=== PATIENT | female | born 1965 | race Two or more races ===

== ENCOUNTER 2025-04-26 10:05 | Inpatient (IN) | payer OTHER ==
[~2025-04-26] VITALS: Ht 213.4 cm; Wt 97.5 kg
[2025-04-26] MEDS ORDERED: NEURONTIN600 M1 PO (10:49)
[2025-04-26] MEDS ORDERED: CRESTOR40 MG (10:49)
[2025-04-26] MEDS ORDERED: VALSARTAN-HCTZ1 EAC1 PO (10:50)
[2025-04-26 10:51] VITALS: BP 139/82
[2025-05-09] MEDS ORDERED: levoFLOXacin IN DEXTROSE 5 % 5 MG/ML PIGGYBAG IV ONE (08:15)
[2025-05-09] MEDS ORDERED: LIDOCAINE HCL 1%/EPINEPHRINE 20ML VIAL IJ ONE (08:15)
[2025-05-09] MEDS ORDERED: METRONIDAZOLE/SODIUM CHLORIDE 500 MG/100 ML PIGGYBACK IV ONE (08:15)
[2025-05-09] MEDS ORDERED: BUPIVACAINE HCL 30 ML VIAL IV ONE (08:15)
[2025-05-09] MEDS ORDERED: MORPHINE SULFATE 4 MG/ML CARTRIDGE IV PRN (10:00)
[2025-05-09] MEDS ORDERED: OxyCODONE HCL 5 MG TABLET (ROXICODONE) PO PRN (10:00)
[2025-05-09] MEDS ORDERED: DEXTROSE 50 % IN WATER 0.5 G/ML DISP.SYRIN IV PRN (10:00)
[2025-05-09] MEDS ORDERED: 0.9 % SODIUM CHLORIDE 1,000 ML IV SCH (10:00)
[2025-05-09] MEDS ORDERED: ONDANSETRON HCL 2 MG/ML VIAL IV PRN (10:00)
[2025-05-09 11:50] VITALS: BP 139/82; O2SAT 96
[2025-05-09 12:09] LABS: BASO % 0.3 % (0.1-1.2); EOS # 0.05 (0.04-0.54); EOS % 0.4 % (0.7-7.0); LYMPH # 1.12 (1.18-3.74); LYMPH % 9.3 % (19.3-53.1); MEAN PLATELET VOLUME 10.00 fl (9.4-12.4); MONO # 0.61 (0.24-0.82); MONO % 5.1 % (4.7-12.5); NEUT # 10.15 (1.56-6.13); NEUT % 84.6 % (34.0-71.1); RED CELL DISTRIBUTION WIDTH 13.8 % (11.6-14.4)
[2025-05-09 12:49] LABS: BUN CREA RATIO 16.0 (7.0-25.0); CREATININE SERUM 0.8 mg/dL (0.55-1.02); GFR 73.16; GLUCOSE FASTING 149.0 mg/dL (65-100); OSMOLALITY SERUM 290.0 MOSM/KG (275-295)
[2025-05-09] MEDS ORDERED: HYOSCYAMINE SULFATE 0.125 MG TAB.SUBL SL SCH (13:00)
[2025-05-09] MEDS ORDERED: ENALAPRILAT DIHYDRATE 1.25 MG/ML VIAL IV PRN (13:30)
[2025-05-09] MEDS ORDERED: ACETAMINOPHEN 500 MG GEL..CAP PO SCH (14:00)
[2025-05-09 16:00] VITALS: BP 145/76; O2SAT 97
[2025-05-09] MEDS ORDERED: GABAPENTIN 300 MG CAPSULE PO SCH (17:00)
[2025-05-09] MEDS ORDERED: METRONIDAZOLE/SODIUM CHLORIDE 500 MG/100 ML PIGGYBACK IV SCH (17:00)
[2025-05-09] MEDS ORDERED: FAMOTIDINE/PF 20 MG/2 ML VIAL IV PUSH SCH (21:00)
[2025-05-10] VITALS: BP 93/57; O2SAT 97
[2025-05-10 07:29] LABS: BASO % 0.3 % (0.1-1.2); EOS # 0.00 (0.04-0.54); EOS % 0.0 % (0.7-7.0); LYMPH # 1.20 (1.18-3.74); LYMPH % 15.9 % (19.3-53.1); MEAN PLATELET VOLUME 10.20 fl (9.4-12.4); MONO # 0.70 (0.24-0.82); MONO % 9.3 % (4.7-12.5); NEUT # 5.61 (1.56-6.13); NEUT % 74.2 % (34.0-71.1); RED CELL DISTRIBUTION WIDTH 13.6 % (11.6-14.4)
[2025-05-10 07:52] LABS: BUN CREA RATIO 16.0 (7.0-25.0); CREATININE SERUM 0.76 mg/dL (0.55-1.02); GFR 77.63; GLUCOSE FASTING 95.0 mg/dL (65-100); OSMOLALITY SERUM 286.0 MOSM/KG (275-295)
[2025-05-10 08:35] VITALS: BP 104/64; O2SAT 98
[2025-05-10] MEDS ORDERED: PATIENTS OWN MEDICATION (MEDICAMENTO EN PISO) PO SCH (09:00)
[2025-05-10] MEDS ORDERED: SOD FERRIC GLUC COMPLX/SUCROSE 62.5 MG in 0.9 % SODIUM CHLORIDE 50 ML IV SCH (12:00)
[2025-05-10] MEDS ORDERED: Cyanocobalamin/Mecobalamin 1 TAB.SL SL NR (13:00)
[2025-05-10 16:59] VITALS: BP 95/50; O2SAT 98
[2025-05-10] MEDS ORDERED: ROSUVASTATIN CALCIUM 20 MG TABLET PO SCH (17:00)
[2025-05-10] MEDS ORDERED: ENOXAPARIN SODIUM 40 MG/0.4 ML SYRINGE SUBCUTANEO SCH (17:00)
[2025-05-11 02:28] VITALS: BP 102/58; O2SAT 98
[2025-05-11 06:58] LABS: BASO % 1.0 % (0.1-1.2); EOS # 0.18 (0.04-0.54); EOS % 2.7 % (0.7-7.0); LYMPH # 1.54 (1.18-3.74); LYMPH % 22.7 % (19.3-53.1); MEAN PLATELET VOLUME 10.30 fl (9.4-12.4); MONO # 0.69 (0.24-0.82); MONO % 10.2 % (4.7-12.5); NEUT # 4.27 (1.56-6.13); NEUT % 63.1 % (34.0-71.1); RED CELL DISTRIBUTION WIDTH 13.5 % (11.6-14.4)
[2025-05-11 07:42] LABS: BUN CREA RATIO 15.0 (7.0-25.0); CREATININE SERUM 0.78 mg/dL (0.55-1.02); GFR 75.33; GLUCOSE FASTING 75.0 mg/dL (65-100); OSMOLALITY SERUM 285.0 MOSM/KG (275-295)
[2025-05-11] MEDS ORDERED: Cyanocobalamin/Mecobalamin 1 TAB.SL SL SCH (09:00)
[2025-05-11] MEDS ORDERED: ENOXAPARIN SODIUM 40 MG/0.4 ML SYRINGE SUBCUTANEO SCH (09:00)
[2025-05-11] MEDS ORDERED: POTASSIUM PHOS,M-BASIC-D-BASIC 3 MM/ML VIAL IV ONE (13:00)
[2025-05-11 16:00] VITALS: BP 115/71; O2SAT 95
[2025-05-12 00:55] VITALS: BP 128/73; O2SAT 98
[2025-05-12 07:30] VITALS: BP 136/76; O2SAT 99
[2025-05-12 11:42] LABS: BASO % 0.5 % (0.1-1.2); EOS # 0.35 (0.04-0.54); EOS % 6.0 % (0.7-7.0); LYMPH # 0.85 (1.18-3.74); LYMPH % 14.7 % (19.3-53.1); MEAN PLATELET VOLUME 9.80 fl (9.4-12.4); MONO # 0.56 (0.24-0.82); MONO % 9.7 % (4.7-12.5); NEUT # 3.98 (1.56-6.13); NEUT % 68.8 % (34.0-71.1); RED CELL DISTRIBUTION WIDTH 13.1 % (11.6-14.4)
[2025-05-12 18:00] VITALS: BP 133/83; O2SAT 98
[2025-05-13 01:31] VITALS: BP 111/76; O2SAT 98
[2025-05-13] MEDS ORDERED: TRAM1TAB98 PO (08:03)
[2025-05-13] MEDS ORDERED: PEPCID AC20 MG PO (08:03)
[2025-05-13] MEDS ORDERED: INTEGRA F CAPS1 EACH PO (08:03)
[2025-05-13] MEDS ORDERED: HYOSCYAMINE0.125 M1 SL (08:03)
[2025-05-13 08:37] VITALS: BP 127/80; O2SAT 99
== END 2025-05-13 12:04 | disposition home or self-care (01) | DRG 331 ==
LOC: SURG 05-09 07:00 → O/R 05-09 07:00 → SURG 05-09 12:00 → SURH 05-09 12:15 → SURG 05-13 12:04
PROVIDERS: Internal Medicine Geriatric Medicine; Obstetrics & Gynecology Gynecology; ADMIT Surgery; ATTEND Surgery
PROC: 07BC4ZX Excision of Pelvis Lymphatic, Percutaneous Endoscopic Approach, Diagnostic (ICD-10-PCS; 2025-05-09)
PROC: 0UB64ZZ Excision of Left Fallopian Tube, Percutaneous Endoscopic Approach (ICD-10-PCS; 2025-05-09)
PROC: 0UT14ZZ Resection of Left Ovary, Percutaneous Endoscopic Approach (ICD-10-PCS; 2025-05-09)
PROC: 0DTN4ZZ Resection of Sigmoid Colon, Percutaneous Endoscopic Approach (ICD-10-PCS; principal; 2025-05-09 18:30)
PROC: 0DBP4ZZ Excision of Rectum, Percutaneous Endoscopic Approach (ICD-10-PCS; 2025-05-09 18:30)
DX: C18.7 Malignant neoplasm of sigmoid colon (principal); R59.0 Localized enlarged lymph nodes; N83.202 Unspecified ovarian cyst, left side; D64.9 Anemia, unspecified; I11.9 Hypertensive heart disease without heart failure